=== PATIENT | male | born 1985 | race Caucasian/White ===

== ENCOUNTER 2022-01-14 01:59 | Emergency (ER) | payer BC ==
[2022-01-14 02:03] VITALS: RESP 18
[2022-01-14] MEDS ORDERED: HYDROcodone/APAP 5-325MG 1 EACH TAB PO STA ×2 (03:43→05:51)
[2022-01-14] MEDS ORDERED: IBUPROFEN 400 MG TAB PO STA (03:43)
--- NOTE | 2022-01-14 04:38 | ED ---
Upper Extremity HPI - General Chief Complaint: Extremity Injury, Upper Stated Complaint: Thumb Injury Time Seen by Provider: 01/14/22 03:21 Source: patient Mode of arrival: ambulatory Limitations: no limitations - History of Present Illness Initial Comments: This patient is a 36-year-old man who presents to have evaluation of left thumb injury. The patient states that he was working and had heavy object impact his left thumb. Pain is worse with movement or palpation. Denies weakness or numbness throughout the hand. No other injuries. MD Complaint: Injury to:: left, finger (#1) -: hour(s) Other Extremity Injury: Fingers: Left Other Injuries: none Handedness: right Improves With: none Worsens With: movement of extremity Context: crush Associated Symptoms: denies other symptoms - Related Data Previous Rx's Medication Instructions Recorded HYDROcodone/APAP 5-325MG [[place] 1 tab PO Q4HR PRN 3 Days #18 tab 01/14/22 5-325] Ibuprofen [Motrin] 600 mg PO Q8HR PRN #20 tab 01/14/22 Allergies Allergy/AdvReac Type Severity Reaction Status Date / Time No Known Allergies Allergy Verified 01/14/22 02:03 Review of Systems ROS Statement: Those systems with pertinent positive or pertinent negative responses have been documented in the HPI. ROS Other: All systems not noted in ROS Statement are negative. Constitutional: Denies: fever, chills Musculoskeletal: Reports: as per HPI, arthralgia Skin: Denies: lesions Neurological: Denies: weakness, numbness, paresthesias Past Medical History Past Medical History: No Reported History History of Any Multi-Drug Resistant Organisms: None Reported Past Surgical History: No Surgical Hx Reported Past Psychological History: No Psychological Hx Reported Smoking Status: Never smoker Past Alcohol Use History: Occasional Past Drug Use History: Marijuana General Exam Limitations: no limitations General appearance: alert, in no apparent distress Left Elbow exam: Present: normal inspection, full ROM. Absent: tenderness, swelling, abrasion Forearm Wrist exam: Present: normal inspection, full ROM. Absent: tenderness, swelling, abrasion Hand Wrist exam: Present: tenderness, swelling, subungual hematoma. Absent: abrasion, laceration, ecchymosis, deformity, crepitus, dislocation, erythema, amputation, nail avulsion Neuro motor exam: Present: wrist extension intact, thumb opposition intact, thumb IP flexion intact, thumb adduction intact, fingers 2-5 abduction intact Neurosensory exam: Present: 2-point discrimination, radial nerve intact, ulnar nerve intact, median nerve intact Vascular: Present: normal capillary refill. Absent: vascular compromise, Pallo, pulse deficit radial art, pulse deficit ulnar art, pulse deficit brachial art Neurological exam: Absent: motor sensory deficit (No sensorimotor deficit throughout the left hand) Skin exam: Present: warm, dry, intact, normal color. Absent: rash Course Vital Signs 01/14/22 02:01 Temperature 97.8 F Pulse Rate 89 Respiratory 18 Rate Blood Pressure 146/91 O2 Sat by Pulse 97 Oximetry Medical Decision Making - Medical Decision Making I did release the subungual hematoma. The nail was cleansed. Used a 20-gauge needle to perforate the knee the nail without complication Disposition Clinical Impression: Subungual hematoma of fingernail, Finger injury Disposition: HOME SELF-CARE Condition: Good Instructions (If sedation given, give patient instructions): Subungual Hematoma (ED), Crush Injury (ED) Prescriptions: Ibuprofen [Motrin] 600 mg PO Q8HR PRN #20 tab PRN Reason: Pain HYDROcodone/APAP 5-325MG [[place] 5-325] 1 tab PO Q4HR PRN 3 Days #18 tab PRN Reason: Pain Is patient prescribed a controlled substance at d/c from ED?: Yes When asked, does pt state using other controlled substances?: No If prescribed controlled substance>3 days was MAPS reviewed?: Prescribed <3 Days If opioid is for acute pain is fill amount 7 days or less?: Yes If Rx opioid, was Start Talking consent form obtained?: Yes Referrals: None,Stated [Primary Care Provider] - 1-2 days Time of Disposition: 05:20
--- NOTE | 2022-01-14 05:20 | XR ---
EXAM: XR Left Hand Complete, 3 or More Views CLINICAL HISTORY: ITS.REASON XR Reason: crush injury TECHNIQUE: Frontal, lateral and oblique views of the left hand. COMPARISON: No relevant prior studies available. FINDINGS: Bones/joints: Unremarkable. No acute fracture. No dislocation. Soft tissues: Unremarkable. No radiopaque foreign body. IMPRESSION: Normal left hand x-rays.
[2022-01-14 05:58] VITALS: BP 121/70; PULSE 68; TEMP 97.6
== END 2022-01-14 06:01 | disposition home or self-care (01) ==
LOC: EC 01:59
DX: S60.939A Unspecified superficial injury of unspecified thumb, initial encounter (principal); X50.0XXA Overexertion from strenuous movement or load, initial encounter
CPT/HCPCS: 99283